=== PATIENT | female | born 1990 | race Two or more races ===

== ENCOUNTER → 2022-08-18 12:57 | Outpatient (BNVA) | payer OTHER, SELFPAY | PROVIDERS: Visit Provider Physician Assistant | DX: S89.82XA Other specified injuries of left lower leg, initial encounter (principal); W18.39XA Other fall on same level, initial encounter | CPT/HCPCS: 73564; 99204 ==

== ENCOUNTER → 2022-08-24 09:31 | Outpatient (BNVA) | payer OTHER, SELFPAY | PROVIDERS: Visit Provider Physician Assistant Medical | DX: S89.82XA Other specified injuries of left lower leg, initial encounter (principal); W00.0XXA Fall on same level due to ice and snow, initial encounter | CPT/HCPCS: 99213 ==